=== PATIENT | male | born 1975 | race Caucasian/White ===

== ENCOUNTER 2020-08-14 16:34 | Emergency (ER) | payer OTHER, MEDICAID ==
[~2020-08-14] VITALS: Ht 170.2 cm; Wt 104.3 kg
[2020-08-14 16:36] VITALS: Ht 170.2 cm; Wt 104.3 kg
[2020-08-14 18:28] LABS: BASOPHIL % 1.5 % (0.2-1.5); PLATELET COUNT 299 x10^3mcL (152-348); RED CELL DISTRIBUTION WIDTH 12.8 % (12.1-16.2)
[2020-08-14 18:47] LABS: CALCIUM 8.8 mg/dL (8.5-10.1); CARBON DIOXIDE 24.4 mmol/L (21-32); CHLORIDE SERUM 99 mmol/L (98-107); GFR1 > 60 mL/min; GLUCOSE SERUM 123 mg/dL (74-106); POTASSIUM SERUM 3.3 mmol/L (3.5-5.1); SODIUM SERUM 137 mmol/L (136-145)
[2020-08-14 18:52] LABS: ALKALINE PHOSPHATASE 62 U/L (46-116); ALT/SGPT 93 U/L (16-63); AST/SGOT 53 U/L (15-37); BILIRUBIN TOTAL 1.03 mg/dL (0.20-1.00); LACTIC DEHYDROGENASE (LDH) 217 U/L (100-190); TOTAL PROTEIN, SERUM 7.5 g/dL (6.4-8.2)
[2020-08-14 18:53] LABS: ALBUMIN 3.1 g/dL (3.4-5.0); C REACTIVE PROTEIN 14.6 mg/dL (<=0.9)
[2020-08-14 20:47] VITALS: BP 127/77
== END 2020-08-14 20:47 | disposition home or self-care (01) ==
LOC: ED 16:34
PROVIDERS: Emergency Medicine
DX: U07.1 COVID-19 (principal)
CPT/HCPCS: 83880; 85378; J2405; J7030